=== PATIENT | male | born 1965 | race Caucasian/White ===

== ENCOUNTER → 2021-03-12 | Outpatient (CLI) | payer OTHER ==
[2014-05-23 18:00] VITALS: BP 126/86
[~2021-03-12] MED LIST: CHLO10TA2 PO; CLON-77 PO; ESOM20CA PO; LEXAPRO5 MG PO; LORA1TAB PO; LORA2TAB PO; MIRT-7 PO; PARO30TA45 PO; POLY17PO29 PO; WARF2.5T2 PO; WARF5TAB2 PO
[2021-03-12] MEDS: IOHEXOL 300 MG/ML 100ML VIAL. IV ONE (15:06)
[2021-03-12] MEDS: IOHEXOL 240 MG/ML 50ML VIAL. PO ONE (15:07)
--- NOTE | 2021-03-12 15:30 | KCIC ---
Exam: CT abdomen with contrast 03/12/2021 2:25 PM Indication: Umbilical hernia without obstruction Technique: Multidetector CT imaging of the abdomen and pelvis was performed following the administra tion of IV and oral contrast Results: The lower lung king are unremarkable. Evaluation of the upper abdomen is somewhat limited secondary to patient's overlying arms. There is a cyst in the left liver measuring 2.1 cm in size. Second smaller cyst nor inferior liver measures 9 m m in diameter. Liver and gallbladder are otherwise unremarkable. Spleen and adrenal glands and pancre as, and kidneys demonstrate no acute abnormality. There is no evidence of bowel obstruction. No acute inflammatory changes involving the partially visualized bowel are identified. There is a fat filled umbilical hernia. Hernia defect measures 1.2 cm transverse by 1.4 cm longitudinal. Hernia sac measure s approximately 3.7 cm transverse x 3.5 ap x 3.5 cm long No other focal hernias are identified. No o ther focal abnormalities are seen. Degenerative changes of the visualized thoracic and lumbar spine n oted. IMPRESSION: 1.Fat filled umbilical hernia as described. 2. No evidence of bowel obstruction or other acute intra-abdominal abnormality CT DOSING PQRS STATEMENT: One or more of the following individualized dose reduction techniques were utilized for this examinat ion: 1. Automated exposure control 2. Adjustment of the mA and/or kV according to patient size 3. Use of iterative reconstruction technique Electronically signed by: Kenny Dick MD (03/12/2021 3:28 PM) [id number]
== END ==
LOC: KCIC CT 13:44
PROVIDERS: ATTEND Physician Assistant Medical
DX: K42.9 Umbilical hernia without obstruction or gangrene (principal); K76.89 Other specified diseases of liver; M47.816 Spondylosis without myelopathy or radiculopathy, lumbar region; M47.814 Spondylosis without myelopathy or radiculopathy, thoracic region
CPT/HCPCS: 74170; Q9966; Q9967

== ENCOUNTER → 2021-09-15 | Outpatient (CLI) | payer OTHER ==
[2014-05-23 18:00] VITALS: BP 126/86
--- NOTE | 2021-09-16 11:23 | KCIC ---
3 views of the thoracic spine without comparison for chronic thoracic pain, no known injury, traumati c brain injury, disability causing difficulty in positioning. FINDINGS: No definite fracture or acute osseous abnormality is identified. There are multilevel degen erative changes with disc desiccation and narrowing at multiple areas. Postsurgical changes in the me diastinum are again seen. No alignment abnormality of the thoracic spine. IMPRESSION: 1. No acute osseous or alignment abnormality of the thoracic spine. Electronically signed by: Lasha Costa MD (09/16/2021 10:21 AM) [id number]
--- NOTE | 2021-09-16 11:23 | KCIC ---
5 views of cervical spine without comparison for chronic neck pain, no known injury, history of traum atic brain injury and disability. FINDINGS: No definite fracture or acute osseous or alignment abnormality of the cervical spine. No pr evertebral soft tissue swelling. Intervertebral disc spaces are maintained in the upper cervical leve ls but are not well seen in the lower cervical levels. There are bulky flowing uncovertebral osteophy michael, and there is severe multilevel facet arthrosis which likely produces moderate to severe multilev el foraminal stenosis as well. These findings could be better interrogated with MRI if clinically war ranted. There has been a prior median sternotomy. Transvenous pacemaker wires are present overlying t he cardiac silhouette. There is a diffuse reticulonodular appearance of the lung parenchyma which may be augmented in part by technique but could relate to underlying interstitial fibrosis, unchanged in terstitial pulmonary edema, or infectious etiologies. IMPRESSION: 1. No acute osseous or alignment abnormality of the cervical spine. 2. Advanced multilevel uncovertebral and facet arthrosis resulting in moderate to severe multilevel f oraminal stenosis bilaterally. Findings could be better interrogated with MRI. 3. Reticulonodular changes throughout the lung parenchyma may be due to chronic fibrotic interstitial lung disease or acute interstitial pulmonary edema or infection. Electronically signed by: Lasha Costa MD (09/16/2021 10:20 AM) [id number]
--- NOTE | 2021-09-16 11:23 | KCIC ---
5 views of the lumbar spine without comparison for chronic lumbar spine pain, no known injury, histor y of traumatic brain injury, disability causing difficulty in positioning. FINDINGS: There is no definite fracture or acute osseous abnormality. There is a subtle superior endp late deformity of L4 which is likely a Schmorl's node but could represent a small age indeterminate s uperior endplate compression fracture. There is narrowing of the intervertebral disc spaces at virtua lly all levels, with vacuum phenomenon present at L5-S1. Facet arthrosis is seen at all levels as wel l. Bones are diffusely osteopenic. IMPRESSION: 1. No definite fracture or acute osseous abnormality. Subtle superior endplate deformity at L4 is lik mohini a Schmorl's node but could represent an age-indeterminate superior endplate fracture. If there is point tenderness in this region, further evaluation with MRI could clarify. 2. Multilevel degenerative changes. Electronically signed by: Lasha Costa MD (09/16/2021 10:23 AM) [id number]
== END ==
LOC: KCIC 10:51
PROVIDERS: ATTEND Family Medicine
DX: M47.814 Spondylosis without myelopathy or radiculopathy, thoracic region (principal); M47.816 Spondylosis without myelopathy or radiculopathy, lumbar region; M85.88 Other specified disorders of bone density and structure, other site; M48.07 Spinal stenosis, lumbosacral region; M47.812 Spondylosis without myelopathy or radiculopathy, cervical region; M48.02 Spinal stenosis, cervical region; M25.78 Osteophyte, vertebrae; M48.04 Spinal stenosis, thoracic region
CPT/HCPCS: 72050; 72072; 72110